=== PATIENT | male | born 1995 | race Caucasian/White ===

== ENCOUNTER 2020-07-26 21:58 | Emergency (ER) | payer OTHER ==
[~2020-07-26] VITALS: Ht 182.9 cm; Wt 74.8 kg
--- NOTE | 2020-07-26 22:25 | NUR ---
[facility] DIZZ[facility] AFTER TAKING PHENOBARB AND CLONIPIN. THE PATIENT DENIES PAIN. IN ROOM AIR AND DENIES SOB. RESPIRATION REGULAR AND UNLABORED. WILL CONTINUE TO MONITOR THE PATIENT.
--- NOTE | 2020-07-26 22:33 | NUR ---
URINE COLLECTED, SENT TO LAB
[2020-07-26] MEDS ORDERED: LORAZEPAM 1 MG TABLET ONE (23:26)
[2020-07-26] MEDS ORDERED: LORAZEPAM 1 MG TABLET PO ONE (23:30)
[2020-07-26 23:46] VITALS: BP 125/71
--- NOTE | 2020-07-26 23:46 | NUR ---
Patient discharged to home in stable condition. Written and verbal after care instructions given. Patient verbalizes understanding of instruction.
== END 2020-07-26 23:46 | disposition home or self-care (01) ==
LOC: ER 22:05
DX: F11.23 Opioid dependence with withdrawal (principal); F41.9 Anxiety disorder, unspecified